=== PATIENT | male | born 1945 | race Caucasian/White ===

== ENCOUNTER 2016-11-03 16:07 | Emergency (ER) | payer OTHER ==
[2016-11-03 16:10] VITALS: BP 139/81; PULSE 98; RESP 16; TEMP 98.3; O2SAT 97
== END 2016-11-03 17:20 | disposition left against medical advice (07) ==
LOC: NED 16:07
DX: R22.42 Localized swelling, mass and lump, left lower limb (principal); Z53.21 Procedure and treatment not carried out due to patient leaving prior to being seen by health care provider
CPT/HCPCS: 99281